=== PATIENT | female | born 1980 | race Two or more races ===

== ENCOUNTER 2019-03-12 16:18 | Inpatient (IN) | payer OTHER ==
[~2019-03-12] VITALS: Ht 154.9 cm; Wt 64.9 kg
[2019-03-12] MEDS ORDERED: VALTREX1000 MG PO (23:20)
[2019-03-12] MEDS ORDERED: METHYLDOPA250 MG PO (23:21)
[2019-03-12] MEDS ORDERED: FOLIC ACID0.8 M1 PO (23:22)
[2019-03-12] MEDS ORDERED: PRENATAL 19 CH1 EAC1 PO (23:23)
[2019-03-12] MEDS ORDERED: VITAMIN B COMP1 EAC1 PO (23:24)
[2019-03-12] MEDS ORDERED: IRON325 MG PO (23:25)
[2019-03-16] MEDS ORDERED: METHYLDOPA250 MG PO (12:58)
== END 2019-03-16 13:44 | disposition home or self-care (01) | DRG 784 ==
LOC: LDR 16:18 → OB/GYN 03-14 07:10
PROVIDERS: ADMIT Obstetrics & Gynecology
PROC: 4A1HXCZ Monitoring of Products of Conception, Cardiac Rate, External Approach (ICD-10-PCS; 2019-03-12)
PROC: 0UB70ZZ Excision of Bilateral Fallopian Tubes, Open Approach (ICD-10-PCS; 2019-03-13)
PROC: 3E033VJ Introduction of Other Hormone into Peripheral Vein, Percutaneous Approach (ICD-10-PCS; 2019-03-13)
PROC: 10D00Z1 Extraction of Products of Conception, Low, Open Approach (ICD-10-PCS; principal; 2019-03-13 18:00)
DX: O61.0 Failed medical induction of labor (principal); O41.03X0 Oligohydramnios, third trimester, not applicable or unspecified; O14.03 Mild to moderate pre-eclampsia, third trimester; Z3A.37 37 weeks gestation of pregnancy; Z37.0 Single live birth; Z30.2 Encounter for sterilization; Z22.330 Carrier of Group B streptococcus

== ENCOUNTER 2022-06-13 09:31 | Emergency (ER) | payer OTHER ==
[~2022-06-13] VITALS: Ht 165.1 cm; Wt 56.7 kg
[~2022-06-13 09:31] MED LIST: FOLIC ACID0.8 M1 PO; IRON325 MG PO; METHYLDOPA250 MG PO; PRENATAL 19 CH1 EAC1 PO; VALTREX1000 MG PO; VITAMIN B COMP1 EAC1 PO
== END 2022-06-13 14:45 | disposition home or self-care (01) ==
LOC: ER 09:31
DX: J10.1 Influenza due to other identified influenza virus with other respiratory manifestations (principal); Z91.012 Allergy to eggs; Z91.011 Allergy to milk products

== ENCOUNTER 2024-01-10 12:03 | Outpatient (CLI) | payer OTHER ==
[2024-01-10 13:28] LABS: PH,URINE 6.5 (5.0-8.0); URINE APPEARANCE Cloudy; URINE BILIRRUBIN Negative (NEGATIVE); URINE BLOOD Large; URINE COLOR Yellow; URINE GLUCOSE Negative (NEGATIVE); URINE KETONE Negative (NEGATIVE); URINE LEUKOCYTE Negative; URINE NITRATE Negative; URINE PROTEIN Negative (NEGATIVE); URINE UROBILINOGEN 0.2 E.U./dl
[2024-01-10 13:29] LABS: URINE EPITHELIAL CELLS 50.6 uL (0.0-38.8); URINE RBC 4317.7 uL (0.0-20.8); URINE WBC 20.7 uL (0.0-23.2)
[2024-01-10 13:34] LABS: URINE CAST 0.15 uL (0.0-1.40)
== END 2024-01-10 12:13 | disposition home or self-care (01) ==
LOC: LAB 12:03
PROVIDERS: ATTEND Urology
DX: N30.00 Acute cystitis without hematuria (principal)

== ENCOUNTER 2024-02-19 09:37 | Outpatient (CLI) | payer OTHER ==
[2024-02-19 10:35] LABS: PH,URINE 6.5 (5.0-8.0); URINE APPEARANCE Clear; URINE BILIRRUBIN Negative (NEGATIVE); URINE BLOOD Large; URINE COLOR Yellow; URINE GLUCOSE Negative (NEGATIVE); URINE KETONE Negative (NEGATIVE); URINE LEUKOCYTE Negative; URINE NITRATE Negative; URINE PROTEIN Negative (NEGATIVE); URINE UROBILINOGEN 0.2 E.U./dl
[2024-02-19 10:37] LABS: URINE BACTERIA 367.8 uL (0.0-1933); URINE EPITHELIAL CELLS 20.2 uL (0.0-38.8); URINE RBC 897.2 uL (0.0-20.8); URINE WBC 5.4 uL (0.0-23.2)
== END 2024-02-19 09:43 | disposition home or self-care (01) ==
LOC: LAB 09:37
PROVIDERS: ATTEND Urology
DX: N30.00 Acute cystitis without hematuria (principal)

== ENCOUNTER 2024-02-19 09:57 | Outpatient (CLI) | payer OTHER | END 2024-02-19 10:05 | disposition home or self-care (01) | LOC: TOM 09:57 | PROVIDERS: ATTEND Urology | DX: N20.1 Calculus of ureter (principal) ==

== ENCOUNTER 2024-06-25 07:23 | Outpatient (CLI) | payer OTHER | END 2024-06-25 07:28 | disposition home or self-care (01) | LOC: SONOGRAMA 07:23 | PROVIDERS: ATTEND Surgery | DX: R10.9 Unspecified abdominal pain (principal); K80.00 Calculus of gallbladder with acute cholecystitis without obstruction ==

== ENCOUNTER 2024-08-22 08:14 | Outpatient (CLI) | payer OTHER | END 2024-08-22 08:40 | disposition home or self-care (01) | LOC: MRI 08:14 | PROVIDERS: ATTEND Neuromusculoskeletal Medicine & OMM | DX: M51.26 Other intervertebral disc displacement, lumbar region (principal); M51.369 Other intervertebral disc degeneration, lumbar region without mention of lumbar back pain or lower extremity pain; R42 Dizziness and giddiness; H93.3X9 Disorders of unspecified acoustic nerve; M50.20 Other cervical disc displacement, unspecified cervical region | CPT/HCPCS: 70553; 72141; 72148 ==

== ENCOUNTER 2024-08-27 07:09 | Outpatient (CLI) | payer OTHER | END 2024-08-27 07:10 | disposition home or self-care (01) | LOC: NUCLEAR 07:09 | PROVIDERS: ATTEND Surgery | DX: K82.8 Other specified diseases of gallbladder (principal) ==

== ENCOUNTER → 2024-10-31 | Day surgery (SDC) | payer OTHER ==
[2024-10-24 08:05] LABS: BASO % 0.4 % (0.1-1.2); EOS % 1.4 % (0.7-7.0); HEMATOCRIT 33.2 % (34.1-44.9); HEMOGLOBIN 10.6 g/dL (11.2-15.7); LYMPH % 26.9 % (19.3-53.1); MEAN CORPUSCULAR HEMOGLOBIN 24.2 pg (25.6-32.2); MONO # 0.41 (0.24-0.82); MONO % 5.8 % (4.7-12.5); NEUT # 4.61 (1.56-6.13); NEUT % 65.2 % (34.0-71.1); PLATELET COUNT 310 K/uL (163-369); RED BLOOD COUNT 4.38 M/uL (3.93-5.22); RED CELL DISTRIBUTION WIDTH 14.6 % (11.6-14.4)
[2024-10-24 08:16] LABS: URINE APPEARANCE Clear; URINE BILIRRUBIN Negative (NEGATIVE); URINE BLOOD Small; URINE COLOR Yellow; URINE GLUCOSE Negative (NEGATIVE); URINE KETONE Negative (NEGATIVE); URINE LEUKOCYTE Negative; URINE NITRATE Negative; URINE PROTEIN Negative (NEGATIVE); URINE UROBILINOGEN 0.2 E.U./dl
[2024-10-24 08:20] LABS: URINE BACTERIA 160.3 uL (0.0-1933); URINE EPITHELIAL CELLS 20.5 uL (0.0-38.8); URINE RBC 77.1 uL (0.0-20.8); URINE WBC 4.2 uL (0.0-23.2)
[2024-10-24 08:28] VITALS: BP 153/97
[2024-10-24 08:29] LABS: PARTIAL THROMBOPLASTIN TIME 23.9 SECONDS (22.0-34.0); PROTHROMBIN TIME 10.9 SECONDS (9.0-11.5)
[2024-10-24 09:09] LABS: ALBUMIN 3.6 gm/dL (3.4-5.0); BILIRUBIN TOTAL 1.34 mg/dL (0.3-1.2); CREATININE SERUM 0.88 mg/dL (0.55-1.02); GFR 69.49; GLOBULINA 3.4 G/DL (2.4-3.5); POTASSIUM 4.26 mEq/L (3.5-5.1)
[~2024-10-31] VITALS: Ht 154.9 cm; Wt 52.6 kg
[~2024-10-31] MED LIST changes: +BUPIVACAINE HCL/Mpf 0.5% 10ML VIAL ONE; +CEFAZOLIN SODIUM 1,000 MG VIAL ONE; +CELEBREX100 MG PO; +CYMBALTA60 MG PO; +HYDROXYZINE HCL50 MG PO; +LIDOCAINE HCL 1%/EPINEPHRINE 20ML VIAL IJ ONE; +MORPHINE SULFATE 4 MG/ML VIAL IV ONE; +NORTEMP160 MG/5 M; +PEPCID AC20 MG; +SUGAMMADEX SODIUM 200 MG/2 ML VIAL IV ONE; +TOPAMAX200 MG; +TOPROL XL100 M1 PO; +VALSARTAN160 MG PO
== END | disposition home or self-care (01) ==
LOC: ADM 10-24 07:00 → CIR.AMB 05:56
PROVIDERS: ATTEND Surgery
DX: K81.1 Chronic cholecystitis (principal); K43.9 Ventral hernia without obstruction or gangrene; Z91.012 Allergy to eggs; Z91.011 Allergy to milk products